=== PATIENT | male | born 1955 | race Caucasian/White ===

== ENCOUNTER 2022-04-30 11:05 | Outpatient (CLI) | payer MEDICARE, OTHER ==
[2022-04-30 13:32] LABS: INR-International Normal Ratio 1.1; PTT 31.7 sec (22.0-33.0); Prothrombin Time 11.7 sec (9.5-12.1)
[2022-04-30 13:43] LABS: Hemoglobin 10.2 g/dL (13.5-17.5); Mean Corpuscular HGB CONC 32.1 g/dL (32.0-36.0); Mean Corpuscular Hemoglobin 28.9 pg (27.0-33.0); Mean Corpuscular Volume 90.1 fl (81.2-95.1); Mean Platelet Volume 11.8 fl (7.4-10.4); Platelet Count 70 10x3/uL (150-450); RBC Distribution Width 17.7 % (11.5-14.5); Red Blood Cell (RBC) Count 3.53 10x6/uL (4.32-5.72)
[2022-04-30 13:52] LABS: ALT (SGPT) 29 U/L (8-55); AST (SGOT) 22 U/L (5-34); Albumin 2.8 g/dL (3.4-4.8); Alkaline Phosphatase 89 U/L (40-110); Anion Gap 10 mmol/L (10-20); BUN (Urea Nitrogen) 13 mg/dL (8.4-25.7); Bilirubin, Direct 0.4 mg/dL (0.1-0.3); Bilirubin, Total 0.7 mg/dL (0.2-1.2); Calc. Creatinine Clearance 0 mL/min (70-130); Carbon Dioxide 32 mmol/L (23-31); Chloride 99 mmol/L (98-107); Estimated GFR 96; Glucose 77 mg/dL (80-115); Potassium 3.2 mmol/L (3.5-5.1); Protein, Total 5.1 g/dL (5.8-8.1); Sodium 138 mmol/L (136-145)
== END 2022-04-30 11:06 | disposition home or self-care (01) ==
LOC: CSHLAB 11:05
PROVIDERS: ATTEND Otolaryngology Otolaryngic Allergy
DX: Z01.818 Encounter for other preprocedural examination (principal); D38.5 Neoplasm of uncertain behavior of other respiratory organs
CPT/HCPCS: 80076; 85610; 85730; 93005; 93010

== ENCOUNTER 2022-05-06 07:13 | Day surgery (SDC) | payer OTHER, MEDICARE ==
[2022-05-05 11:36] VITALS: BMI 25.9
[2022-05-06] MEDS ORDERED: Oxymetazoline HCl 0.05% ( 15 ML ) ONE (07:26)
[2022-05-06] MEDS ORDERED: PROPOFOL 20 ML ONE (08:41)
[2022-05-06] MEDS ORDERED: Ondansetron PF 4 MG/2 ML Vial ONE ×2 (08:41→08:44)
[2022-05-06] MEDS ORDERED: Glycopyrrolate 0.2 MG/ML 5 ML SYRINGE ONE (08:41)
[2022-05-06] MEDS ORDERED: Rocuronium Bromide 10 MG/ML (10ML VIAL) ONE (08:41)
[2022-05-06] MEDS ORDERED: Lidocaine 1% PF 5 ML VIAL ONE (08:41)
[2022-05-06] MEDS ORDERED: Fentanyl 100 MCG/2 ML VIAL ONE (08:41)
[2022-05-06] MEDS ORDERED: Midazolam HCl 2 mg/2 ml Vial ONE (08:41)
[2022-05-06] MEDS ORDERED: Dexamethasone 20 MG/5 ML VIAL ONE (08:41)
[2022-05-06] MEDS ORDERED: EPINEPHrine 1 MG/ML AMP ONE ×3 (08:50→09:26)
[2022-05-06] MEDS ORDERED: CEFAZOLIN 1 GM VIAL ONE (08:50)
[2022-05-06] MEDS ORDERED: Succinylcholine 200 MG/10 ml SYRINGE FS ONE (09:06)
[2022-05-06] MEDS ORDERED: Lidocaine 1% w/Epinephrine 1:100K 20 ML VIAL ONE (09:26)
[2022-05-06] MEDS ORDERED: Thrombin 5000 UNITS/5 ML VIAL ONE (09:49)
== END 2022-05-06 11:50 | disposition home or self-care (01) ==
LOC: CSHSDC 07:13
PROVIDERS: ATTEND Otolaryngology Otolaryngic Allergy
PROC: 09BR8ZX Excision of Left Maxillary Sinus, Via Natural or Artificial Opening Endoscopic, Diagnostic (ICD-10-PCS; principal; 2022-05-06)
DX: D14.0 Benign neoplasm of middle ear, nasal cavity and accessory sinuses (principal); Z85.79 Personal history of other malignant neoplasms of lymphoid, hematopoietic and related tissues; Z79.899 Other long term (current) drug therapy
CPT/HCPCS: 88304; 88305; 88331; C1713; C2625; J0171; J0690; J1100; J2250; J2405; J2704; J3010

== ENCOUNTER 2023-06-02 08:51 | Outpatient (CLI) | payer MEDICARE ==
[2023-06-02] MEDS ORDERED: Magnevist 469MG/ML 20 ML VIAL ONE (10:14)
== END 2023-06-02 08:52 | disposition home or self-care (01) ==
LOC: CSHMRI 08:51
PROVIDERS: ATTEND Radiology Radiation Oncology
DX: M54.50 Low back pain, unspecified (principal); C90.00 Multiple myeloma not having achieved remission
CPT/HCPCS: 72158